=== PATIENT | female | born 1970 | race African-American/Black ===

== ENCOUNTER 2023-05-30 18:48 | Inpatient (IN) | payer BC, SELFPAY ==
[2023-05-30 19:57] LABS: Absolute Lymphocytes (CBC) 0.2 K/uL (0.7-4.9); Absolute Monocytes 0.2 K/uL (0.1-1.3); Absolute Neutrophil 8.7 K/uL (1.8-8.0); Basophils % 0.2 % (0-1.3); Eosinophils % 0.1 % (0-4.4); Hemoglobin 13.1 g/dL (12.0-15.0); Lymphocytes % 2.4 % (15.3-44.8); MCH 30.7 pg (27.0-35.0); MCHC 34.5 g/dL (32.0-36.0); MPV 7.7 fL (7.6-11.3); Monocytes % 2.6 % (3.3-12.3); Neutrophils % 94.7 % (41.7-73.7); Platelets 201 thou/uL (152-406); RBC Red Blood Cell Count 4.27 M/uL (3.86-4.86); Red Cell Distribution Width 14.4 % (12.1-15.2)
[2023-05-30] MEDS ORDERED: ONDANSETRON 4 MG/2 ML VIAL ONE (19:57)
[2023-05-30] MEDS ORDERED: ACETAMINOPHEN 500 MG TAB ONE (19:57)
[2023-05-30] MEDS ORDERED: NA CHLORIDE 0.9% 1,000 ML ONE ×2 (19:58→21:00)
[2023-05-30] MEDS ORDERED: FENTANYL CITR 100 MCG/2 ML ONE (19:58)
[2023-05-30 20:08] LABS: PTT, Activated Partial Thromb 28.5 SECONDS (24.3-36.9); Protime INR 1.47
[2023-05-30 20:13] LABS: SARS-CoV-2 Antigen CONTROL BLUE LINE VIS/BG OK
[2023-05-30 20:14] LABS: SARS-CoV-2 Antigen Rapid Res Positive (Negative)
[2023-05-30 20:20] LABS: Albumin 3.3 g/dL (3.4-5.0); Anion Gap 11.5 mEq/L (5.0-15.0); Bilirubin Total 1.6 mg/dL (0.2-1.0); Globulin 3.3 g/dL (2.3-3.5); Potassium 3.5 mEq/L (3.5-5.1); Protein, Total 6.6 g/dL (6.4-8.2); Troponin High Sensitivity 26.9 pg/mL (<58.9)
[2023-05-30 20:46] LABS: Band Neutrophils 23 % (0-1); Blood Morphology Comment NOT SEEN (NOT SEEN); Differential Total Cells Count 100; Lymphocytes 7 % (15-42); Monocytes 1 % (0-10); Platelet Estimate ADEQ; Segmented Neutrophils 68 % (40-80); White Blood Cell Scan DIFF (OK)
--- NOTE | 2023-05-30 20:46 | RAD REPORT ---
EXAM DESCRIPTION: [place] Single View05/30/2023 8:29 pm CLINICAL HISTORY: FEVER COMPARISON: No comparisons TECHNIQUE: Portable AP view of the chest. FINDINGS: The lungs are clear. No pneumothorax or effusion. The cardiomediastinal contours are unre markable. IMPRESSION: No acute cardiopulmonary process.
[2023-05-30] MEDS ORDERED: IBUPROFEN 400 MG TAB ONE (20:59)
--- NOTE | 2023-05-30 21:13 | RAD REPORT ---
EXAM DESCRIPTION: CT - Head Brain Wo Cont - 05/30/2023 8:50 pm CLINICAL HISTORY: MENTAL STATUS CHANGE COMPARISON: No comparisons TECHNIQUE: Noncontrast head CT images were obtained without IV contrast. Multiplanar reformats were generated and reviewed. All CT scans are performed using dose optimization technique as appropriate and may include automated exposure control or mA/KV adjustment according to patient size. FINDINGS: No intracranial hemorrhage, mass, or edema. Midline structures are unremarkable. Normal ventricular caliber for age. Hoyt-white matter differentiation is preserved, without evidence of acute infarct. No abnormal extra- axial fluid collections. Mastoid air cells and visualized portions of the paranasal sinuses are clear. No acute bony findings. IMPRESSION: No evidence of an acute intracranial process.
--- NOTE | 2023-05-30 21:54 | RAD REPORT ---
EXAM DESCRIPTION: CT - Chest Abdomen Pelvis W Cont - 05/30/2023 8:54 pm CLINICAL HISTORY: FEVER COMPARISON: No comparisons TECHNIQUE: Thin axial CT images of the chest, abdomen, and pelvis, performed following intravenous a dministration of 100 mL Isovue-300. Multiplanar reformats were generated and reviewed. All CT scans are performed using dose optimization technique as appropriate and may include automated exposure control or mA/KV adjustment according to patient size. FINDINGS: The lungs are clear.No pleural or pericardial effusion.No intrathoracic adenopathy. The liver shows a 3.1 x 2.9 cm subcapsular cyst near the gallbladder bed. Spleen, pancreas, adrenal g lands and kidneys are within normal limits. Gallbladder is distended with wall thickening and hyperenhancement, and pericholecystic fluid. Lobula philip heterogeneous hyperdense sludge within. No bowel obstruction, free air, free fluid or abscess. Normal appendix. No pathologic lymphadenopath y in the abdomen or pelvis. No worrisome osseous finding. IMPRESSION: Distended gallbladder with wall thickening, edema, and hyperenhancement, suggesting ongo ing cholecystitis. Please correlate clinically, and with dedicated ultrasound if clinically indicated .
[2023-05-30 21:55] LABS: Specific Gravity > 1.030 (1.005-1.030); Sqamous Epithelial <5 /HPF (None Seen); Urine Bacteria >50 /HPF (<20); Urine Bilirubin NEGATIVE (Negative); Urine Blood Trace (Negative); Urine Clarity Extremely Turbid (Clear); Urine Color Yellow (Yellow); Urine Culture Reflex Order REFLEXED; Urine Glucose NEGATIVE (Negative); Urine Ketones TRACE (Negative); Urine Microscopic Reflex YN ORDER UMIC; Urine Mucus Slight /HPF (None Seen); Urine Nitrite 2+ (Negative); Urine Protein 1+ (Negative); Urine Urobilinogen 3+ (Normal); Urine WBC Clump Rare /HPF (None Seen); Urine pH 7.5 (5.0-7.0)
[2023-05-30] MEDS ORDERED: NA CHLORIDE 0.9% 100 ML ONE (22:04)
--- NOTE | 2023-05-31 00:23 | EDPHYS ---
Physician Documentation [facility] Name: Catrachito Gong Age: 53 yrs Sex: Female : 1970 Arrival Date: 05/30/2023 Time: 18:48 Bed 20 Private MD: ED Physician Sal Santos HPI: 05/29 19:30 This 53 yrs old Black Female presents to ER via EMS with complaints of cp Nausea/Vomiting/Diarrhea, Altered Mental Status. 19:30 The patient presents to the emergency department with nausea, that is moderate, cp vomiting, that is continuous. Onset: The symptoms/episode began/occurred 2 day(s) ago. Possible causes: unknown. Associated signs and symptoms: Pertinent positives: fever, altered mental status, Pertinent negatives: diarrhea, GI bleeding. Severity of symptoms: in the emergency department the symptoms are unchanged despite home interventions. 19:30 History provided by daughter as patient is altered. cp Historical: - Allergies: 18:54 No Known Allergies; bp - Home Meds: 18:54 Unable to obtain [Active]; bp - PMHx: 18:54 Arthritis; bp - Immunization history:: Adult Immunizations unknown. - Infectious Disease History:: Denies. - Social history:: Smoking status: unknown. ROS: 19:33 Constitutional: Positive for fever, poor PO intake, cp 19:33 Cardiovascular: Negative for chest pain, cp 19:33 Abdomen/GI: Positive for nausea and vomiting, 19:33 Neuro: Positive for altered mental status, 19:33 Unable to obtain ROS due to altered mental status, Exam: 19:37 Constitutional: The patient appears in no acute distress, alert, awake, cp non-diaphoretic, non-toxic, well developed, well nourished, obese, uncomfortable, 19:37 Head/Face: Normocephalic, atraumatic. cp 19:37 Eyes: Periorbital structures: appear normal, Pupils: equal, round, and reactive to light and accomodation, Conjunctiva: normal, no exudate, no injection, Sclera: no appreciated abnormality, Lids and lashes: appear normal, bilaterally, 19:37 ENT: External ear(s): are unremarkable, Nose: is normal, Mouth: Lips: dry, Oral mucosa: moist, Posterior pharynx: Airway: no evidence of obstruction, patent, erythema, is not appreciated, exudate, is not appreciated, 19:37 Neck: ROM/movement: Meningeal signs: are not present, nuchal rigidity, is not appreciated, 19:37 Chest/axilla: Inspection: normal, 19:37 Cardiovascular: Rate: tachycardic, Rhythm: regular, Edema: is not appreciated, JVD: is not appreciated, 19:37 Respiratory: the patient does not display signs of respiratory distress, Respirations: normal, no use of accessory muscles, no retractions, labored breathing, is not present, Breath sounds: are clear throughout, no decreased breath sounds, no stridor, no wheezing, 19:37 Abdomen/GI: Inspection: abdomen appears normal, Bowel sounds: active, all quadrants, Palpation: soft, in all quadrants, mild abdominal tenderness, in the epigastric area and right upper quadrant, rebound tenderness, is not appreciated, involuntary guarding, is not appreciated, 19:37 Back: CVA tenderness, is absent, 19:37 Skin: no rash present. 19:37 Neuro: Orientation: to person, Mentation: able to follow commands, Motor: moves all fours, no focal deficits, 21:15 ECG was reviewed by the Attending Physician. cp Vital Signs: 18:52 BP 180 / 80; Pulse 155; Resp 24; Temp 103.7; Pulse Ox 98% ; bp 19:06 BP 109 / 95; Pulse 154; Resp 20; Temp 103.1(O); Pulse Ox 98% on R/A; me1 20:00 BP 107 / 67; Pulse 141; Resp 20; Pulse Ox 98% on R/A; me1 21:00 BP 113 / 72; Pulse 120; Resp 19; Temp 98.6(O); Pulse Ox 96% on R/A; me1 22:00 BP 127 / 81; Pulse 104; Resp 20; Pulse Ox 100% on R/A; me1 23:00 BP 122 / 69; Pulse 101; Resp 20; Pulse Ox 99% on R/A; me1 0413 00:00 BP 126 / 60; Pulse 97; Resp 19 S; Pulse Ox 97% on R/A; jw7 01:00 BP 100 / 54; Pulse 85; Resp 19 S; Pulse Ox 97% on R/A; jw7 MDM: 05/29 19:08 Patient medically screened. cp 21:00 Differential diagnosis: cholecystitis, sepsis, uti, meningitis, COVID-19. 05/30 00:30 Data reviewed: vital signs, nurses notes, lab test result(s), EKG, radiologic studies, cp CT scan, plain films, ultrasound. 00:30 Management of patient was discussed with the following: Renal Dialysis Technician: DR Iqbal, general surgery, will consult for cholecystitis and patient is admitted to hospitalist DR Delarosa. I considered the following discharge prescriptions or medication management in the emergency department Medications were administered in the Emergency Department. See MAR. Independent interpretation of the following test(s) in the Emergency Department EKG: See my EKG interpretation above. Counseling: I had a detailed discussion with the patient and/or guardian regarding the historical points, exam findings, and any diagnostic results supporting the discharge/admit diagnosis, lab results, radiology results, the need for further work-up and treatment in the hospital. Response to treatment: the patient's symptoms have markedly improved after treatment. 05/29 19:20 Order name: Blood Culture Adult (2) 05/29 19:20 Order name: CBC with Diff; Complete Time: 20:51 05/29 20:13 Interpretation: Normal except: CAROL% 94.7; LYM% 2.4; MN% 2.6; NEUT A 8.7; LYMA 0.2. 05/29 19:20 Order name: CMP; Complete Time: 20:51 05/29 20:51 Interpretation: Normal except: GLUC 112; CRE 1.17; GFR 56; BILIT 1.6; ALB 3.3; A/G 1.0. 05/29 19:20 Order name: Lactate w/ 2H reflex if indic.; Complete Time: 20:51 05/29 20:54 Interpretation: Reviewed. 05/29 19:20 Order name: Protime (+inr); Complete Time: 20:13 05/29 19:20 Order name: Ptt, Activated; Complete Time: 20:13 05/29 19:20 Order name: Urinalysis w/ reflexes; Complete Time: 22:08 05/29 22:08 Interpretation: Reviewed. 05/29 19:20 Order name: Troponin High Sensitivity; Complete Time: 20:51 05/29 19:20 Order name: Influenza Screen (a \T\ B); Complete Time: 20:51 cp 04 19:20 Order name: SARS RAPID; Complete Time: 20:51 cp 05/29 20:52 Interpretation: Abnormal: SARS RESULT Positive. cp 05/29 20:06 Order name: CBC Smear Scan; Complete Time: 20:51 EDWI 05/29 20:47 Order name: Manual Differential; Complete Time: 20:51 EDMS 05/29 20:52 Interpretation: Abnormal: BANDS [F] 23. cp 05/29 22:09 Order name: Urine Culture EDWI 05/30 02:38 Order name: CBC with Automated Diff EDMS 05/30 02:38 Order name: CBC with Automated Diff EDMS 05/30 02:38 Order name: Comprehensive Metabolic Panel EDWI 05/30 02:38 Order name: Comprehensive Metabolic Panel EDWI 05/30 02:38 Order name: Lipid Profile EDWI 05/30 02:38 Order name: Lipid Profile EDWI 05/30 09:32 Order name: Test, Urine ld1 05/30 09:40 Order name: Test, Urine EDWI 05/29 19:20 Order name: Chest Single View XRAY; Complete Time: 20:51 cp 05/29 20:14 Order name: CT Head Brain wo Cont; Complete Time: 21:40 cp 05/29 21:40 Interpretation: Report reviewed. 05/29 20:14 Order name: CT Chest, Abdomen, Pelvis - W/Contrast; Complete Time: 21:55 cp 05/29 21:56 Interpretation: Report reviewed. 05/29 21:59 Order name: US Abdomen Limited 05/30 02:38 Order name: CONS Physician Consult [facility] 05/29 19:20 Order name: Accucheck; Complete Time: 20:52 cp 05/29 19:20 Order name: Cardiac monitoring; Complete Time: 21:41 cp 05/29 19:20 Order name: EKG - Nurse/Tech; Complete Time: 21:41 cp 05/29 19:20 Order name: IV Saline Lock - Large Bore; Complete Time: 19:46 cp 05/29 19:20 Order name: Labs collected and sent; Complete Time: 19:46 cp 05/29 19:20 Order name: O2 Per Protocol; Complete Time: 19:46 cp 05/29 19:20 Order name: O2 Sat Monitoring; Complete Time: 19:46 cp 05/29 19:20 Order name: Vital Signs; Complete Time: 19:46 cp 05/30 00:20 Order name: NPO; Complete Time: 00:23 cp EC/12 21:15 Rate is 115 beats/min. Rhythm is regular. ND interval is normal. QRS interval is cp normal. QT interval is normal. Interpreted by me. Reviewed by me. Administered Medications: 20:04 Drug: Acetaminophen PO 1000 mg PO once Route: PO; me1 20:42 Follow up: Response: No adverse reaction me1 20:04 Drug: NS 0.9% IV 1000 ml IV at 1 bolus Per protocol; 1000 mL bolus Route: IV; Rate: 1 me1 bolus; Site: left hand; 23:33 Follow up: Response: No adverse reaction; IV Status: Completed infusion; IV Intake: me1 1000ml 20:10 Drug: Ondansetron IVP 4 mg IVP once; over 2 minutes Route: IVP; Site: left hand; me1 20:41 Follow up: Response: No adverse reaction; Nausea is decreased me1 20:10 Drug: fentaNYL (PF) IVP 50 mcg IVP once Route: IVP; Site: left hand; me1 20:42 Follow up: Response: No adverse reaction; Pain is decreased me1 21:05 Drug: NS 0.9% IV 1000 ml IV at 1 bolus Per protocol; 1000 mL bolus Route: IV; Rate: 1 me1 bolus; Site: left hand; 05/30 00:00 Follow up: Response: No adverse reaction; IV Status: Completed infusion; IV Intake: jw7 1000ml 05/29 21:06 Drug: Ibuprofen PO 800 mg PO once Route: PO; me1 21:12 Follow up: Response: No adverse reaction; Temperature is decreased me1 22:11 Drug: Piperacillin-Tazobactam IVPB 3.375 grams IVPB once over 60 mins; (mix in NS 100 me1 mL) Route: IVPB; Infused Over: 60 mins; Site: left hand; 23:32 Follow up: Response: No adverse reaction; IV Status: Completed infusion; IV Intake: me1 100ml 22:45 Drug: NS 0.9% IV 1000 ml IV at 125 ml/hr continuous Route: IV; Rate: 125 ml/hr; Site[place] [facility] [place]; 05/30 06:35 Follow up: Response: No adverse reaction; IV Status: Completed infusion; IV Intake: jw7 1000ml Disposition Summary: 05/31/23 00:23 Hospitalization Ordered Notes: Hospitalization Status: Inpatient Admission cp Provider: Rain Delarosa cp Condition: Stable cp Problem: new cp Symptoms: have improved cp Bed/Room Type: Standard cp Location: [facility] ER HOLD(05/31/23 00:28) rv1 Room Assignment: ERHOLD-(05/31/23 00:28) rv1 Diagnosis - Severe sepsis without septic shock cp - Acute cholecystitis cp - SARS-associated coronavirus as the cause of diseases classified elsewhere cp Forms: - Medication Reconciliation Form cp - SBAR form cp - Leadership Thank You Letter cp Addendum: 06/02/2023 09:42 I was immediately available for consultation during this patient's visit. I did not e c2 personally see the patient or discuss the patient with the STACIA. . Signatures: Dispatcher [employer] EDMS Kuldeep Le PA PA cp Peltier, Brian, RN RN bp Villegas, Rebecca rv1 Soumya Cordero RN RN tx1 Sal Santos MD MD 2 Deysi Dwyer RN jw7 Corrections: (The following items were deleted from the chart) 05/29 19:21 19:21 BLOOD CULTURE*+BA.LAB.BRZ ordered. EDMS EDMS 19:21 19:21 CBC+H.LAB.BRZ ordered. EDMS EDMS 19:21 19:21 COMPREHENSIVE METABOLIC PANEL+C.LAB.BRZ ordered. EDMS EDMS 19:21 19:21 LACTATE+C.LAB.BRZ ordered. EDMS EDMS 19:21 19:21 PROTIME (+INR)+COAG.LAB.BRZ ordered. EDMS EDMS 19:21 19:21 PTT, ACTIVATED+COAG.LAB.BRZ ordered. EDMS EDMS 19:21 19:21 Urinalysis+U.LAB.BRZ ordered. EDMS EDMS 19:21 19:21 Troponin High Sensitivity+C.LAB.BRZ ordered. EDMS EDMS 19:21 19:21 Influenza Screen (A \T\ B)+BA.LAB.BRZ ordered. EDMS EDMS 19:21 19:21 SARS-COV-2 Antigen Rapid+I.LAB.BRZ ordered. EDMS EDMS 19:21 19:21 Chest Single View+RAD.RAD.BRZ ordered. EDMS EDMS 20: 20:14 Head Brain Wo Cont+CT.RAD.BRZ ordered. EDMS EDMS 20: 20:14 Chest Abdomen Pelvis W Con+CT.RAD.BRZ ordered. EDMS EDMS 05/30 00:28 00:23 Telemetry/MedSurg (Inpatient) cp rv1 00:28 00:23 cp rv1
--- NOTE | 2023-05-31 00:23 | ER ---
Nurse's Notes [facility] Name: Catrachito Gong Age: 53 yrs Sex: Female : 1970 Arrival Date: 05/30/2023 Time: 18:48 Bed 20 Private MD: Diagnosis: Severe sepsis without septic shock;Acute cholecystitis;SARS-associated coronavirus as the cause of diseases classified elsewhere Presentation: 05/29 18:52 Chief complaint: EMS states: N/V/D, ALTERED, FEBRILE. Coronavirus screen: At this time, bp the client does not indicate any symptoms associated with coronavirus-19. Ebola Screen: No symptoms or risks identified at this time. Initial Sepsis Screen: Does the patient meet any 2 criteria? RR > 20 per min. Temp <36.0*C (96.8*F)) or > 38.3*C (100.9*F). Altered Mental Status. HR > 90 bpm. Yes. Risk Assessment: Do you want to hurt yourself or someone else? Patient reports no desire to harm self or others. Onset of symptoms is unknown. Care prior to arrival: IV initiated. 22 GA, in the left hand, Glucose check: 192. 18:52 Method Of Arrival: EMS: [facility] bp 18:52 Acuity: BRYAN 2 bp 19:02 Initial Sepsis Screen: Does the patient have a suspected source of infection? No. me1 Patient's initial sepsis screen is negative. Triage Assessment: 18:54 General: Appears ill, obese, unkempt, Behavior is agitated, anxious. Pain: Unable to bp use pain scale. Does not appear to understand pain scale. GI: Reports diarrhea, nausea, vomiting. Historical: - Allergies: 18:54 No Known Allergies; bp - Home Meds: 18:54 Unable to obtain [Active]; bp - PMHx: 18:54 Arthritis; bp - Immunization history:: Adult Immunizations unknown. - Infectious Disease History:: Denies. - Social history:: Smoking status: unknown. Screenin:55 [facility] ED Fall Risk Assessment (Adult) History of falling in the last 3 months, bp including since admission No falls in past 3 months (0 pts). Abuse screen: Denies threats or abuse. Denies injuries from another. Nutritional screening: No deficits noted. Tuberculosis screening: No symptoms or risk factors identified. Assessment: 20:37 General: Appears uncomfortable, obese, well groomed, well developed, Behavior is me1 cooperative, appropriate for age, restless, Reports n/v for about a week. fever and confusion that started today. Pain: Complains of pain in pelvis Pain does not radiate. Pain currently is 5 out of 10 on a pain scale. Quality of pain is described as aching, Pain began chronic. Neuro: Level of Consciousness is awake, alert, obeys commands, confused, Oriented to person, place, situation. Cardiovascular: Capillary refill Patient's skin is warm and dry. Respiratory: Airway is patent Respiratory effort is even, unlabored, Respiratory pattern is regular, symmetrical. GI: Abdomen is round Reports nausea, vomiting, since a week. : Reports incontinence. Derm: Skin is intact, is healthy with good turgor, Skin is clammy. Musculoskeletal: No signs and/or symptoms reported regarding the musculoskeletal system. 22:00 Reassessment: Patient and/or family updated on plan of care and expected duration. Pain me1 level reassessed. Patient is alert, oriented x 3, equal unlabored respirations, skin warm/dry/pink. Patient states feeling better. 05/30 00:00 General: Appears in no apparent distress. comfortable, Behavior is calm, cooperative, jw7 appropriate for age. Pain: Complains of pain in pelvis Pain does not radiate. Pain currently is 2 out of 10 on a pain scale. Quality of pain is described as aching, Pain began Chronic. Neuro: Level of Consciousness is awake, alert, obeys commands, confused, Oriented to person, place, situation. Cardiovascular: Heart tones S1 S2 present Capillary refill < 3 seconds Clubbing of nail beds is absent JVD is absent Patient's skin is warm and dry. Respiratory: Airway is patent Trachea midline Respiratory effort is even, unlabored, Respiratory pattern is regular, symmetrical. GI: Abdomen is round non-distended, Reports nausea, vomiting. : Reports incontinence. EENT: No deficits noted. No signs and/or symptoms were reported regarding the EENT system. Derm: Skin is intact, is healthy with good turgor, Skin is dry, Skin is normal, Skin temperature is warm. Musculoskeletal: Circulation, motion, and sensation intact. Range of motion: intact in all extremities. 01:30 Reassessment: Patient appears in no apparent distress at this time. No changes from jw7 previously documented assessment. Patient and/or family updated on plan of care and expected duration. Pain level reassessed. Patient is alert, oriented x 3, equal unlabored respirations, skin warm/dry/pink. Vital Signs: 05/29 18:52 BP 180 / 80; Pulse 155; Resp 24; Temp 103.7; Pulse Ox 98% ; bp 19:06 BP 109 / 95; Pulse 154; Resp 20; Temp 103.1(O); Pulse Ox 98% on R/A; me1 20:00 BP 107 / 67; Pulse 141; Resp 20; Pulse Ox 98% on R/A; me1 21:00 BP 113 / 72; Pulse 120; Resp 19; Temp 98.6(O); Pulse Ox 96% on R/A; me1 22:00 BP 127 / 81; Pulse 104; Resp 20; Pulse Ox 100% on R/A; me1 23:00 BP 122 / 69; Pulse 101; Resp 20; Pulse Ox 99% on R/A; me1 05/30 00:00 BP 126 / 60; Pulse 97; Resp 19 S; Pulse Ox 97% on R/A; jw7 01:00 BP 100 / 54; Pulse 85; Resp 19 S; Pulse Ox 97% on R/A; jw7 ED Course: 05/29 18:52 Patient arrived in ED. bp 18:54 Triage completed. bp 18:54 Arm band placed on. bp 18:55 Patient has correct armband on for positive identification. bp 18:55 Maintain EMS IV. Dressing intact. Good blood return noted. Site clean \T\ dry. Gauge \T\ bp site: 22 L HAND. 19:00 Soumya Cordero, SANDOVAL is Primary Nurse. ma1 19:08 Kuldeep Le PA is PHCP. cp 19:08 Alcides Ribeiro MD is Attending Physician. cp 19:42 Initial lab(s) drawn, by ma, sent to lab. First set of blood cultures drawn by ma, [facility] COVID swab sent to lab. Flu and/or RSV swab sent to lab. 19:46 SARS RAPID Sent. ma1 19:46 Influenza Screen (a \T\ B) Sent. ma1 19:46 Troponin High Sensitivity Sent. ma1 19:46 Blood Culture Adult (2) Sent. me1 19:46 CBC with Diff Sent. me1 19:46 CMP Sent. me1 19:46 Lactate w/ 2H reflex if indic. Sent. me1 19:46 Protime (+inr) Sent. me1 19:46 Ptt, Activated Sent. me1 19:46 Urinalysis w/ reflexes Sent. me1 19:46 Inserted saline lock: 20 gauge in right antecubital area, using aseptic technique. me1 19:51 Second set of blood cultures drawn by me. me1 20:16 Notified Nurse Practitioner and/or Physician Liner Reroll Tender of a critical lab result(s), me1 covid positive. 20:30 Chest Single View XRAY In Process Unspecified. EDMS 20:37 Provided Education on: POC. Verbalized understanding. . me1 20:37 No provider procedures requiring assistance completed. me1 20:52 CT Head Brain wo Cont In Process Unspecified. EDMS 20:56 CT Chest, Abdomen, Pelvis - W/Contrast In Process Unspecified. EDMS 21:41 Urine collected: straight cath specimen, cloudy. me1 22:00 Sal Santos MD is Attending Physician. cp 22:48 US Abdomen Limited In Process Unspecified. EDMS 04 00:00 Report received from Sandoval Dooley. jw7 00:21 Rain Delarosa MD is Hospitalizing Provider. cp 01:52 Patient admitted, IV remains in place. jw7 06:40 Sal Santos MD is Attending Physician. ec2 Administered Medications: 05/29 20:04 Drug: Acetaminophen PO 1000 mg PO once Route: PO; me1 20:42 Follow up: Response: No adverse reaction me1 20:04 Drug: NS 0.9% IV 1000 ml IV at 1 bolus Per protocol; 1000 mL bolus Route: IV; Rate: 1 me1 bolus; Site: left hand; 23:33 Follow up: Response: No adverse reaction; IV Status: Completed infusion; IV Intake: me1 1000ml 20:10 Drug: Ondansetron IVP 4 mg IVP once; over 2 minutes Route: IVP; Site: left hand; me1 20:41 Follow up: Response: No adverse reaction; Nausea is decreased me1 20:10 Drug: fentaNYL (PF) IVP 50 mcg IVP once Route: IVP; Site: left hand; me1 20:42 Follow up: Response: No adverse reaction; Pain is decreased me1 21:05 Drug: NS 0.9% IV 1000 ml IV at 1 bolus Per protocol; 1000 mL bolus Route: IV; Rate: 1 me1 bolus; Site: left hand; 05/30 00:00 Follow up: Response: No adverse reaction; IV Status: Completed infusion; IV Intake: jw7 1000ml 05/29 21:06 Drug: Ibuprofen PO 800 mg PO once Route: PO; me1 21:12 Follow up: Response: No adverse reaction; Temperature is decreased me1 22:11 Drug: Piperacillin-Tazobactam IVPB 3.375 grams IVPB once over 60 mins; (mix in NS 100 me1 mL) Route: IVPB; Infused Over: 60 mins; Site: left hand; 23:32 Follow up: Response: No adverse reaction; IV Status: Completed infusion; IV Intake: me1 100ml 22:45 Drug: NS 0.9% IV 1000 ml IV at 125 ml/hr continuous Route: IV; Rate: 125 ml/hr; Site: [facility] [place] left hand; 05/30 06:35 Follow up: Response: No adverse reaction; IV Status: Completed infusion; IV Intake: jw7 1000ml Medication: 05/29 20:37 VIS not applicable for this client. me1 Intake: 23:32 IV: 100ml; Total: 100ml. me1 23:33 IV: 1000ml; Total: 1100ml. me1 05/30 00:00 IV: 1000ml; Total: 2100ml. jw7 06:35 IV: 1000ml; Total: 3100ml. jw7 Outcome: 00:23 Decision to Hospitalize by Provider. cp 01:00 Condition: stable jw7 01:00 Admitted to ER Hold. Please see [facility] for further documentation. jw7 01:00 Instructed on the need for admit, Demonstrated understanding of instructions, 09:47 Patient left the ED. eb Signatures: Dispatcher [employer] EDCT Kuldeep Le PA PA cp Peltier, Brian, RN RN Maggi Huston eb Deysi Dwyer RN RN jw7 Soumya Cordero RN RN me1 Sal Santos MD MD ec2 Corrections: (The following items were deleted from the chart) 05/29 21:48 21:30 BP 125 / 93; Pulse 93bpm; Resp 16bpm; Pulse Ox 98%; Temp 98.2F Oral; me1 me1
[2023-05-31] MEDS ORDERED: ACETAMINOPHEN 500 MG TAB PO PRN (02:32)
--- NOTE | 2023-05-31 02:32 | P.HP ---
Certification for Inpatient Patient admitted to: Inpatient With expected LOS: >2 Midnights Patient will require the following post-hospital care: None Practitioner: I am a practitioner with admitting privileges, knowledge of patient current condition, hospital course, and medical plan of care. Services: Services provided to patient in accordance with Admission requirements found in Title 42 Section 412.3 of the Code of Federal Regulations Patient History Date of Service: 05/31/23 Reason for admission: Abdominal pain and nausea and vomiting History of Present Illness: 53-year-old female with past medical history of neuropathic pain, obesity, presented to the hospital today after developing right upper quadrant pain since the last 2 days pain is more of crampy, associated with intermittent nausea and vomiting. Patient symptoms continue to persist and patient presented because of symptoms. She admits to fever and chills. She denies any diarrhea. Vomiting is nonbilious. No reported hematemesis. She denies any cough, she denies any sick contacts. She denies any COVID exposure On arrival in the ED vital signs were stable, chest x-ray was normal, COVID screen was positive. CT of the abdomen and pelvics shows evidence of slurring and thickening of the gallbladder concerning for ongoing cholecystitis. Ultrasound of the gallbladder also confirmed possible cholecystitis. WBC was normal but with a left shift noted. BMP was unremarkable except for creatinine of 1.15. Patient is being admitted for acute cholecystitis. General surgery has been consulted Home medications list reviewed: Yes - Past Medical/Surgical History Has patient received pneumonia vaccine in the past: No -: Multiple joint arthritis -: Obesity -: Neuropathic pain Past Surgical History: Patient denies surgical history - Family History Family History: Reviewed- Non-Contributory - Social History Smoking Status: Never smoker Place of Residence: Home Review of Systems General: Fever, Chills Gastrointestinal: Nausea, Vomiting, Abdominal Pain Neurological: Weakness Physical Examination - Physical Exam General: Alert, Oriented x3, Cooperative, Obese HEENT: Atraumatic, Normocephalic, PERRLA Neck: Supple, 2+ carotid pulse no bruit, JVD not distended Respiratory: Clear to auscultation bilaterally, Normal air movement Cardiovascular: No edema, Normal pulses, Regular rate/rhythm, Normal S1 S2 Gastrointestinal: Normal bowel sounds, Soft and benign, Non-distended, Tenderness (mild RUQ) Musculoskeletal: No clubbing, No swelling Integumentary: No rashes, No breakdown Neurological: Normal speech, Normal strength at 5/5 x4 extr, Sensation intact, Cranial nerves 3-12 intact External genitalia: No edema, No lesions - Studies Laboratory Data (last 24 hrs) 05/30/23 05/30/23 05/30/23 19:42 19:42 19:42 WBC 9.20 Hgb 13.1 Hct 38.0 Plt Count 201 PT 16.0 H INR 1.47 APTT 28.5 Sodium 138 Potassium 3.5 BUN 11 Creatinine 1.17 H Glucose 112 H Total Bilirubin 1.6 H AST 19 ALT 33 Alkaline Phosphatase 77 Microbiology Data (last 24 hrs): 05/30/23 19:28 Nasopharnyx Influenza Type A Antigen Screen - Final 05/30/23 19:28 Nasopharnyx Influenza Type B Antigen Screen - Final Assessment and Plan - Problems (Diagnosis) (1) Acute calculous cholecystitis Current Visit: Yes Status: Acute (2) SARS-CoV-2 positive Current Visit: Yes Status: Acute - Plan Impression Acute calculus cholecystitis Obesity COVID-positive status Plan Will admit to inpatient Start gentle IV fluid Keep n.p.o. IV Zofran as needed Pain control Start empirical antibiotics with cefepime/Flagyl Follow general surgery consult, may need cholecystectomy in a.m. Trend WBC Positive COVID status but asymptomatic for COVID bronchitis or pneumonia, will monitor for now no management needed Airborne precaution Subcutaneous Lovenox for DVT prophylaxis Full code Discharge Plan: Home - Advance Directives Does patient have a Living Will: No Does patient have a Durable POA for Healthcare: No Physician Review: Patient Assessed, Agree with Above Assessment and Plan Time Spent Managing Pts Care (In Minutes): 65
[2023-05-31] MEDS ORDERED: MORPHINE 2 MG/ML SYR IV PRN (02:35)
[2023-05-31] MEDS ORDERED: guaiFENesin 100 MG/5 ML UCUP PO PRN (02:35)
[2023-05-31 03:32] VITALS: BMI 43.2
[2023-05-31] MEDS: D5 0.9 NS 1,000 ML IV SCH (04:03)
[2023-05-31] MEDS ORDERED: D5W 1,000 ML IV ONE (04:06)
[2023-05-31] MEDS ORDERED: ONDANSETRON 4 MG/2 ML VIAL ONE ×2 (08:59→11:43)
[2023-05-31] MEDS ORDERED: NA CHLORIDE 0.9% 100 ML ONE (09:00)
[2023-05-31] MEDS ORDERED: CEFEPIME 1 GM/VIAL ONE (09:00)
[2023-05-31] MEDS: FAMOTIDINE 20 MG/2 ML VIAL IV SCH (09:00)
[2023-05-31] MEDS ORDERED: METRONIDAZOLE 500mg IVPB 500 MG/100 ML BAG IV ONE (09:00)
[2023-05-31] MEDS ORDERED: MORPHINE 2 MG/ML SYR ONE (09:00)
[2023-05-31] MEDS ORDERED: FAMOTIDINE 20 MG/2 ML VIAL IV ONE (09:00)
[2023-05-31] MEDS: MORPHINE 2 MG/ML SYR IV PRN (09:09)
[2023-05-31] MEDS: ONDANSETRON 4 MG/2 ML VIAL IV PRN (09:14)
--- NOTE | 2023-05-31 09:38 | PREOPCON ---
Date of Consultation: 05/31/2023 Reason For Consultation: Abdominal pain. History Of Present Illness: The patient is a 53-year-old female who comes in with acute onset of damir sea and vomiting associated with some discomfort in the right upper quadrant for the last 2 days. Sh otilia came in, had a workup done. She essentially has acute cholecystitis and cholelithiasis and I was c onsulted. She denies any diarrhea or constipation. No blood in her stool. No sore throat, runny no se, cough, headaches, or dizziness. No chest pain. No fever or chills. No dysuria, hematuria. Review of Systems: Otherwise unremarkable. Of interest is the patient is positive for COVID. Past Medical History: Multiple joint arthritis, obesity and neuropathic pain. Past Surgical History: . Allergies: NO ALLERGIES. Social History: The patient does not smoke or drink. Family History: Noncontributory. Physical Examination: Vital Signs: Stable. She is afebrile. General: She is awake, alert, oriented x3. Head and Neck: There is no evidence of icterus. No neck masses. No JVD. Throat clear. Neck is hebert pple. Chest: Clear. Heart: S1, S2. Abdomen: Soft, nondistended, positive bowel sounds, positive right upper quadrant tenderness. No re bound, rigidity, or guarding. Extremities: Adequately perfused, nontender. Neuro: Nonfocal. Laboratory Data: White count is 9.2 with neutrophil percentage being 94.7 and band neutrophils are 2 3. INR is 1.47. Chemistry reviewed. Lactic acid is 1.9. Total bilirubin is 1.6, AST is 19, ALT 33 , alkaline phosphatase 77. CT of the abdomen and pelvis as well as the ultrasound reviewed with the radiologist and findings are essentially consistent with acute cholecystitis and cholelithiasis. Assessment: Acute cholecystitis and cholelithiasis. Recommendation: Admit n.p.o., IV fluid, IV antibiotic, to the OR for laparoscopic cholecystectomy, p ossible open. The patient understands risks, benefits, alternatives and agrees to procedure. /MODL Voice ID: [id number] Report ID: [id number]
[2023-05-31 09:40] LABS: Specific Gravity > 1.030 (1.005-1.030)
[2023-05-31] MEDS: Ringers Lactate 1,000 ML IV ONE ×2 (09:50→12:26)
[2023-05-31] MEDS: SUCCINYLCHOLINE 20 MG/ML (10 ML) IV ONE (09:58)
[2023-05-31] MEDS ORDERED: propofoL 200 MG/20 ML VIAL IV ONE (10:00)
[2023-05-31] MEDS: CEFEPIME 1 GM in NA CHLORIDE 0.9% 100 ML IV SCH (10:00)
[2023-05-31] MEDS ORDERED: FENTANYL CITR 100 MCG/2 ML ONE ×2 (10:00→11:29)
[2023-05-31] MEDS ORDERED: MIDAZOLAM HCL 2 MG/2 ML INJ ONE (10:00)
[2023-05-31] MEDS ORDERED: ROCURONIUM 50 MG/5 ML VIAL IV ONE (10:00)
[2023-05-31] MEDS: METRONIDAZOLE 500mg IVPB 500 MG/100 ML BAG IV SCH (10:00)
[2023-05-31] MEDS: PIPERACIL/TAZO 3.375 GM VIAL IV ONE (10:25)
[2023-05-31] MEDS: BUPIVACAINE 0.5% PF 10 ML VIAL ONE (10:28)
[2023-05-31] MEDS ORDERED: dexAMETHasone 10 MG/ML VIAL ONE (11:43)
[2023-05-31] MEDS ORDERED: NEOSTIGMINE 1 MG/ML -10 ML VIAL ONE (11:46)
[2023-05-31] MEDS ORDERED: GLYCOPYRROLATE 0.2 MG/ML SYR ONE ×3 (11:46)
[2023-05-31] MEDS: SUGAMMADEX SODIUM 200 MG/2 ML VIAL IV ONE (12:09)
--- NOTE | 2023-05-31 12:12 | P.OP ---
Date of Service: 05/31/23 Preop diagnosis: Acute cholecystitis and cholelithiasis Postop diagnosis: Same with pus in the gallbladder and adhesions Procedure performed: Laparoscopic cholecystectomy and lysis of adhesions Surgeon: Jesus Manuel Iqbal MD Adobe Block Maker: Camille TAMAYO Estimated blood loss: Minimal Specimen: Gallbladder Findings: As above Anesthesia: General Complications: None Drains: Sancho-Gann drain #10 flat Fluids and blood products: Nonapplicable Disposition: Recovery room Operative note: Patient brought to the OR and placed in supine position. General anesthesia began. Patient prepped and draped in the usual sterile fashion. Marcaine 0.5% infiltrated locally. 15 blade used to make a 2 cm supraumbilical midline incision. Subcutaneous tissue divided and bleeding controlled cautery. Fascia identified and divided. #1 Vicryl stay suture placed. Peritoneal cavity entered with sharp and blunt dissection. 12 mm trocar placed into the peritoneal cavity under direct vision. Pneumoperitoneum established. Three 5 mm trocars placed. 1 trocar placed in the epigastric region just to the right of midline. 2 trocars placed in the right subcostal region. Laparoscopy revealed extensive adhesions to the gallbladder and a distended gallbladder. LigaSure used to take down the adhesions. Approximately 15 minutes time required to take down all the adhesions from the gallbladder. Gallbladder was aspirated of pus as it was distended. Then fundus retracted superiorly and infundibulum identified and retracted inferolaterally. Cystic duct and cystic artery clearly identified with blunt dissection clips placed posterior to divided. Cautery used to remove the gallbladder from the liver bed. Bleeding on the liver bed controlled with cautery. Oozing noted. Gallbladder retrieved through the umbilicus via Endo Catch bag. The fascial defect had to be extended to allow the gallbladder to be removed. Right upper quadrant examined after new pneumoperitoneum established. Right upper quadrant irrigated and effluent clear. There was no evidence of bleeding or bile leakage. Oozing noted from the liver bed which was controlled with cautery. Arixtra used as well. Sancho-Gann drain 10 flat placed and secured with 3-0 nylon. All trocars removed under direct vision. #1 Vicryl used to close the fascial defect. Subcutaneous wounds irrigated and bleeding controlled cautery. 3-0 chromic used to reapproximate subcutaneous tissue. Navid used to close skin. Sterile dressing applied. Patient awakened and taken to recovery room in good general condition. CC:
[2023-05-31] MEDS: HYDROMORPHONE HCL 1 MG/ML INJ ONE (12:14)
--- NOTE | 2023-05-31 15:10 | P.PN ---
Date of Service: 05/31/23 Pt seen and examined. Pt is a 53 yo with past medical history of of neuropathic pain and obesity who presents with right upper quadrant pain that stated 2 days ago. The abd pain is crampy and associated with intermittent nausea and vomiting. Lab studies showed positive COVID. A/P: Acute calculus cholecystitis: Continue iv abx and prn pain med. Gen Surgeon took pt to the OR today. Obesity: Pt was advised to lose weight. COVID: Will continue enhanced resp precaution. She is oxygenating well on room. DVT ppx: lovenox Code: full
[2023-05-31] MEDS: HYDROMORPHONE HCL 1 MG/ML INJ IV PRN (16:52)
[2023-05-31] MEDS: HYDROCODONE/APAP 7.5/325 MG TAB PO PRN (20:59)
[2023-06-01 03:55] LABS: Absolute Basophils 0.1 K/uL (0-0.5); Absolute Lymphocytes (CBC) 0.5 K/uL (0.7-4.9); Absolute Monocytes 0.9 K/uL (0.1-1.3); Absolute Neutrophil 12.1 K/uL (1.8-8.0); Basophils % 0.4 % (0-1.3); Hematocrit 36.7 % (36.0-45.0); Hemoglobin 11.9 g/dL (12.0-15.0); Lymphocytes % 3.6 % (15.3-44.8); MCH 29.7 pg (27.0-35.0); MCHC 32.4 g/dL (32.0-36.0); MCV 91.6 fL (80-100); MPV 8.4 fL (7.6-11.3); Monocytes % 6.5 % (3.3-12.3); Neutrophils % 89.5 % (41.7-73.7); Nucleated Red Blood Cells % 0.1 % (0-0); Platelets 166 thou/uL (152-406); Red Cell Distribution Width 14.7 % (12.1-15.2)
[2023-06-01 04:19] LABS: Albumin 2.4 g/dL (3.4-5.0); Albumin/Globulin Ratio 0.7 (1.1-1.8); Anion Gap 10.4 mEq/L (5.0-15.0); Bilirubin Total 0.8 mg/dL (0.2-1.0); Globulin 3.6 g/dL (2.3-3.5); Magnesium 1.6 mg/dL (1.6-2.4); Phosphorus 2.3 mg/dL (2.5-4.9); Potassium 5.4 mEq/L (3.5-5.1)
[2023-06-01] MEDS: Magnesium Sulfate 2gm IVPB 2 G/50 ML BAG IV ONE (09:05)
[2023-06-01] MEDS: SODIUM ZIRCONIUM CYCLOSILICATE 10 GM/PKT PO ONE (09:11)
--- NOTE | 2023-06-01 09:53 | PN ---
Date of Progress Note: 06/01/2023 Subjective: The patient is awake, alert, complaining of some mild incisional pain. Tolerating her d iet, ambulating, and pain is controlled. Her vital signs are stable. She is afebrile. The drain pu t out 80 cc of serosanguineous fluid last shift. White count is 13.6 with a left shift. Chemistry r eviewed. Abdominal exam shows soft, nondistended. Positive bowel sounds. Dressing is clean, dry, a nd intact. Minimal incisional tenderness. Assessment: Status post laparoscopic cholecystectomy for acute cholecystitis and cholelithiasis. Recommendations: Continue IV antibiotics today. Encourage ambulation and incentive spirometry. Lik angel discharge in a.m. on oral antibiotics. /MODL Voice ID: [id number] Report ID: [id number]
--- NOTE | 2023-06-01 10:26 | P.PN ---
Subjective Date of Service: 06/01/23 Chief Complaint: Abdominal pain and nausea and vomiting Pt is resting comfortably in bed. She is passing gas. No BM yet. She complains of slight soreness over the surgical site. Abdominal binder is in place. Pt is tolerating oral intake. No other complaints. Review of Systems General: Unremarkable Eyes: Unremarkable ENT: Unremarkable Respiratory: Unremarkable Cardiovascular: Unremarkable Gastrointestinal: Abdominal Pain Genitourinary: Unremarkable Musculoskeletal: Unremarkable Integumentary: Unremarkable Neurological: Unremarkable Lymphatics: Unremarkable Physical Examination - Vital Signs Temperature: 98.4 F Blood Pressure: 133/91 Pulse: 79 Respirations: 18 Pulse Ox (%): 99 - Physical Exam General: Alert, In no apparent distress, Oriented x3 HEENT: Atraumatic, Normocephalic, PERRLA Neck: Supple, 2+ carotid pulse no bruit Respiratory: Clear to auscultation bilaterally, Normal air movement, Diminished Cardiovascular: No edema, Normal pulses, Regular rate/rhythm, Normal S1 S2 Capillary refill: <2 Seconds Gastrointestinal: Normal bowel sounds, Hypoactive, Soft and benign Musculoskeletal: No clubbing, No swelling Integumentary: No rashes, No breakdown Neurological: Normal gait, Normal speech, Normal strength at 5/5 x4 extr, Normal tone, Sensation intact Lymphatics: No axilla or inguinal lymphadenopathy Assessment And Plan - Plan Acute calculus cholecystitis: Continue iv abx and prn pain med. POD #1. Gen Surgeon wants pt to go home tomorrow. Obesity: Pt was advised to lose weight. Hyperkalemia: K is 5.4. Will give lokelma. COVID: Will continue enhanced resp precaution. She is oxygenating well on room. Obesity: Pt was advised to lose weight. DVT ppx: lovenox Code: full Physician Review: Patient Assessed, Agree with Above Assessment and Plan
[2023-06-01 11:04] VITALS: O2SAT 98
[2023-06-02 05:58] LABS: Absolute Lymphocytes (CBC) 0.8 K/uL (0.7-4.9); Absolute Monocytes 0.9 K/uL (0.1-1.3); Absolute Neutrophil 9.7 K/uL (1.8-8.0); Basophils % 0.1 % (0-1.3); Hematocrit 37.2 % (36.0-45.0); Hemoglobin 12.4 g/dL (12.0-15.0); Lymphocytes % 7.4 % (15.3-44.8); MCHC 33.3 g/dL (32.0-36.0); MCV 90.1 fL (80-100); Monocytes % 7.5 % (3.3-12.3); Nucleated Red Blood Cells % 0.1 % (0-0); Platelets 221 thou/uL (152-406); RBC Red Blood Cell Count 4.13 M/uL (3.86-4.86); Red Cell Distribution Width 15.1 % (12.1-15.2)
--- NOTE | 2023-06-02 07:14 | P.DS ---
Admission Date: 05/31/23 Discharge Date: 06/02/23 Reason for Admission: Abdominal pain and nausea and vomiting Brief History of Present Illness: 53-year-old female with past medical history of neuropathic pain, obesity, presented to the hospital today after developing right upper quadrant pain since the last 2 days pain is more of crampy, associated with intermittent nausea and vomiting. Patient symptoms continue to persist and patient presented because of symptoms. She admits to fever and chills. She denies any diarrhea. Vomiting is nonbilious. No reported hematemesis. She denies any cough, she denies any sick contacts. She denies any COVID exposure On arrival in the ED vital signs were stable, chest x-ray was normal, COVID screen was positive. CT of the abdomen and pelvics shows evidence of slurring and thickening of the gallbladder concerning for ongoing cholecystitis. Ultrasound of the gallbladder also confirmed possible cholecystitis. WBC was normal but with a left shift noted. BMP was unremarkable except for creatinine of 1.15. Patient is being admitted for acute cholecystitis. General surgery has been consulted - Physical Exam General: Alert, Oriented x3, Cooperative, Obese HEENT: Atraumatic, Normocephalic, PERRLA Neck: Supple, 2+ carotid pulse no bruit, JVD not distended Respiratory: Clear to auscultation bilaterally, Normal air movement Cardiovascular: No edema, Normal pulses, Regular rate/rhythm, Normal S1 S2 Gastrointestinal: Normal bowel sounds, Soft and benign, Non-distended, Musculoskeletal: No clubbing, No swelling Integumentary: No rashes, No breakdown Neurological: Normal speech, Normal strength at 5/5 x4 extr, Sensation intact, Cranial nerves 3-12 intact External genitalia: No edema, No lesions Hospital Course: 53-year-old admitted with abdominal pain, right upper quadrant. Was noted to have nausea vomiting. CT of the abdomen pelvis shows evidence of slurring and thickening of the gallbladder concerning for ongoing cholecystitis. Patient was evaluated by surgery is status post laparoscopic cholecystectomy. Patient was also noted to be COVID-positive, treated with empirical IV antibiotics, surgery consult, asymptomatic for COVID-pneumonia. Assessment Acute cholecystitis status post laparoscopic cholecystectomy COVID, asymptomatic Obesity Follow-up with surgery after discharge Dr. Iqbal DC home with Cipro antibiotics per Dr. Iqbal As needed analgesics per surgery, no reported use of heavy equipment while on p.o. narcotics As needed stool softeners for constipation as a side effect of narcotics Continue home medicines as previously prescribed GOAL: Clear understanding of disease process INSTRUCTIONS: Physician Discharge Instructions: -Follow-up with PCP in 1 to 2 weeks -Please call Dr. Loya at [phone] if any questions regarding hospital stay -Please call nursing station at [phone] if any nursing or medication questions -Return to the emergency room if symptoms worsen Diet: ADA, low sodium Activity: Fall precautions <Camille Vazquez - Last Filed: 06/02/23 16:45> Admission Date: 05/31/23 Discharge Date: 06/02/23 Hospital Course: Chart has been reviewed. Agree with findings as mentioned above. Status post laparoscopic cholecystectomy. Continue with oral antibiotic therapy. Outpatient follow-up with general surgery in 1 to 2 weeks. <Valentine Loya - Last Filed: 06/07/23 17:56> Disposition: ROUTINE DISCHARGE Discharge Condition: GOOD Vital Signs/Physical Exam: Temp Pulse Resp BP Pulse Ox 98.3 F 79 16 150/86 H 99 06/01/23 20:00 06/01/23 20:00 06/01/23 22:43 06/01/23 20:00 06/01/23 20:00 Laboratory Data at Discharge: WBC 11.40 thou/uL (4.3-10.9) H 06/02/23 05:40 Hgb 12.4 g/dL (12.0-15.0) 06/02/23 05:40 Hct 37.2 % (36.0-45.0) 06/02/23 05:40 Plt Count 221 thou/uL (152-406) D 06/02/23 05:40 PT 16.0 SECONDS (9.5-12.5) H 05/30/23 19:42 INR 1.47 05/30/23 19:42 APTT 28.5 SECONDS (24.3-36.9) 05/30/23 19:42 Sodium 139 mEq/L (136-145) 06/01/23 03:47 Potassium 5.4 mEq/L (3.5-5.1) H 06/01/23 03:47 BUN 16 mg/dL (7-18) 06/01/23 03:47 Creatinine 1.15 mg/dL (0.55-1.02) H 06/01/23 03:47 Glucose 174 mg/dL (74-106) H 06/01/23 03:47 Phosphorus 2.3 mg/dL (2.5-4.9) L 06/01/23 03:47 Magnesium 1.6 mg/dL (1.6-2.4) 06/01/23 03:47 Total Bilirubin 0.8 mg/dL (0.2-1.0) 06/01/23 03:47 AST 63 U/L (15-37) H 06/01/23 03:47 ALT 53 U/L (13-56) 06/01/23 03:47 Alkaline Phosphatase 68 U/L (45-117) 06/01/23 03:47 Triglycerides 89 mg/dL (<150) 06/01/23 03:47 Cholesterol 87 mg/dL (<200) 06/01/23 03:47 HDL Cholesterol 38 mg/dL (40-60) L 06/01/23 03:47 Cholesterol/HDL Ratio 2.29 06/01/23 03:47 <Camille Vazquez - Last Filed: 06/02/23 16:45> Vital Signs/Physical Exam: Temp Pulse Resp BP Pulse Ox 98.0 F 80 18 155/79 H 98 06/02/23 12:00 06/02/23 12:30 06/02/23 12:31 06/02/23 12:30 06/02/23 12:31 Laboratory Data at Discharge: WBC Cancelled 06/02/23 11:00 Hgb Cancelled 06/02/23 11:00 Hct Cancelled 06/02/23 11:00 Plt Count Cancelled 06/02/23 11:00 PT 16.0 SECONDS (9.5-12.5) H 05/30/23 19:42 INR 1.47 05/30/23 19:42 APTT 28.5 SECONDS (24.3-36.9) 05/30/23 19:42 Sodium 139 mEq/L (136-145) 06/02/23 05:40 Potassium 4.3 mEq/L (3.5-5.1) D 06/02/23 05:40 BUN 16 mg/dL (7-18) 06/02/23 05:40 Creatinine 0.99 mg/dL (0.55-1.02) 06/02/23 05:40 Glucose 102 mg/dL (74-106) 06/02/23 05:40 Phosphorus 2.3 mg/dL (2.5-4.9) L 06/01/23 03:47 Magnesium 1.6 mg/dL (1.6-2.4) 06/01/23 03:47 Total Bilirubin 0.8 mg/dL (0.2-1.0) 06/01/23 03:47 AST 63 U/L (15-37) H 06/01/23 03:47 ALT 53 U/L (13-56) 06/01/23 03:47 Alkaline Phosphatase 68 U/L (45-117) 06/01/23 03:47 Triglycerides 89 mg/dL (<150) 06/01/23 03:47 Cholesterol 87 mg/dL (<200) 06/01/23 03:47 HDL Cholesterol 38 mg/dL (40-60) L 06/01/23 03:47 Cholesterol/HDL Ratio 2.29 06/01/23 03:47 <Valentine Loya - Last Filed: 06/07/23 17:56> Diet: Regular Activity: No lifting more than 10 lbs Time spent managing pt's care (in minutes): 55 <Camille Vazquez - Last Filed: 06/02/23 16:45> <Valentine Loya - Last Filed: 06/07/23 17:56> Home Medications: Ciprofloxacin HCl 500 mg PO Q12H #28 tab 06/02/23 Docusate [Colace Cap] 100 mg PO DAILY #10 cap 06/02/23 Hydrocodone 7.5/APAP 325 [[place] 7.5/325 mg*] 1 tab PO Q4H PRN #30 tab 06/02/23 New Medications: Ciprofloxacin HCl 500 mg PO Q12H #28 tab Docusate [Colace Cap] 100 mg PO DAILY #10 cap Hydrocodone 7.5/APAP 325 [[place] 7.5/325 mg*] 1 tab PO Q4H PRN #30 tab PRN Reason: Pain Scale 5-7 (Moderate) Physician Discharge Instructions: 53-year-old admitted with abdominal pain, right upper quadrant. Was noted to have nausea vomiting. CT of the abdomen pelvis shows evidence of slurring and thickening of the gallbladder concerning for ongoing cholecystitis. Patient was evaluated by surgery is status post laparoscopic cholecystectomy. Patient was also noted to be COVID-positive, treated with empirical IV antibiotics, surgery consult, asymptomatic for COVID-pneumonia. Assessment Acute cholecystitis status post laparoscopic cholecystectomy COVID, asymptomatic Obesity Follow-up with surgery after discharge Dr. Iqbal As needed analgesics per surgery, no reported use of heavy equipment while on p.o. narcotics As needed stool softeners for constipation as a side effect of narcotics Continue home medicines as previously prescribed GOAL: Clear understanding of disease process INSTRUCTIONS: Physician Discharge Instructions: -Follow-up with PCP in 1 to 2 weeks -Please call Dr. Loya at [phone] if any questions regarding hospital stay -Please call nursing station at [phone] if any nursing or medication questions -Return to the emergency room if symptoms worsen May shower in a.m. Dry gauze or Band-Aid to the wound daily Incentive spirometry as instructed No heavy lifting or strenuous exercise Resume home meds and diet Follow-up my office 1 week, call for appointment Weston 7.5, Ritchie and Billie called into patient's pharmacy Followup: NONE,NONE [UNKNOWN] - Jesus Manuel Iqbal MD [ACTIVE - CAN ADMIT] - 1 Week (Call for appointment)
[2023-06-02 10:54] LABS: Anion Gap 8.3 mEq/L (5.0-15.0); Potassium 4.3 mEq/L (3.5-5.1)
[2023-06-02] MEDS: HYDRALAZINE HCL 20 MG/ML VIAL IV PRN (11:31)
[2023-06-02 13:20] VITALS: TEMP 98
[2023-06-02 14:04] VITALS: BP 155/79
--- NOTE | 2023-06-02 14:47 | PN ---
Date of Progress Note: 06/02/2023 Subjective: Patient is awake, alert. No complaints. Vital signs are stable. She is afebrile. Jd kson-Gann drain put out 10 cc over the last shift. Her white count is down to 11.4. Her abdomen is benign. Her dressing is clean, dry, and intact. Assessment: Status post laparoscopic cholecystectomy. Recommendation: Patient cleared for discharge. Discharge instructions given. Antibiotics and pain medicines called into patient's pharmacy and follow up in my office in 1 week. /MODL Voice ID: [id number] Report ID: [id number]
--- NOTE | 2023-06-03 21:54 | RAD REPORT ---
EXAM DESCRIPTION: US - Abdomen Exam Limited - 05/30/2023 10:46 pm CLINICAL HISTORY: Nausea / vomitin COMPARISON: None. TECHNIQUE: US ABDOMEN LIMITED 05/30/2023 9:59 PM CDT FINDINGS: Gallbladder contains multiple large gallstones. Gallbladder wall is thickened at 8 mm. The re is pericholecystic fluid. Common bile duct measures 6 mm. There is a reported negative sonographic Nielson sign. IMPRESSION: Presumed cholecystitis. Electronically signed by: Rock Mojica MD 05/30/2023 11:58 PM CDT Due to temporary technical issues with the PACS/Fluency reporting system, reports are being signed by the in house radiologists without review as a courtesy to insure prompt reporting. The interpreting radiologist is fully responsible for the content of the report.
--- NOTE | 2023-06-12 17:44 | EKG ---
Test Date: 2023-05-30 Test Time: 21:08:38 Financial Analyst: [employer] MEASUREMENT RESULTS: Intervals: Rate: 115 CO: 142 QRSD: 74 QT: 352 QTc: 486 [place]: P: 78 CO: 142 QRS: 49 T: 1 INTERPRETIVE STATEMENTS: Sinus tachycardia Otherwise normal ECG No previous ECG available for comparison Electronically Signed On 06-12-23 16:58:50 CDT by Andi Bower
== END 2023-06-02 16:50 | disposition home or self-care (01) | DRG 853 ==
LOC: ER 18:48 → ERHOLD 05-31 02:32 → 4TH 05-31 11:11 → 2ND 05-31 11:46
PROVIDERS: ADMIT Internal Medicine; ATTEND Hospitalist
PROC: 0FT44ZZ Resection of Gallbladder, Percutaneous Endoscopic Approach (ICD-10-PCS; principal; 2023-05-31 10:00)
DX: A41.89 Other specified sepsis (principal); U07.1 COVID-19; K80.00 Calculus of gallbladder with acute cholecystitis without obstruction; Z68.41 Body mass index [BMI] 40.0-44.9, adult; E66.9 Obesity, unspecified; A41.51 Sepsis due to Escherichia coli [E. coli]; K66.0 Peritoneal adhesions (postprocedural) (postinfection); N30.90 Cystitis, unspecified without hematuria; R65.20 Severe sepsis without septic shock
CPT/HCPCS: 36415; 70450; 71045; 71260; 74177; 76705; 80048; 80053; 80061; 81001; 81025; 83605; 83735; 84100; 84484; 85025; 85610; 85730; 87040; 87077; 87086; 87088; 87186; 87205; 87804; 87811; 88304; 93005; 94010; 94760; 96361; 96365; 96375; 99285; J0360; J0692; J1100; J1170; J2250; J2270; J2405; J2543; J2704; J2710; J3010; J7030; J7120; Q9967